=== PATIENT | female | born 1990 | race Caucasian/White ===

== ENCOUNTER 2017-03-02 11:34 | Emergency (ER) | payer OTHER, BC ==
[2017-03-02] MEDS: ACETAMINOPHEN 325 MG TAB PO (12:21)
[2017-03-02] MEDS: SOD CHLORIDE 0.9% 1,000 ML IV (12:21)
[2017-03-02] MEDS: IBUPROFEN 800 MG TAB PO (12:21)
== END 2017-03-02 15:30 | disposition home or self-care (01) ==
LOC: FTE 11:34
DX: J10.1 Influenza due to other identified influenza virus with other respiratory manifestations (principal); J45.909 Unspecified asthma, uncomplicated
CPT/HCPCS: 71010; 84703; 87400; 93005; 99285-25